=== PATIENT | male | born 1945 | race Caucasian/White ===

== ENCOUNTER 2018-01-15 11:21 | Inpatient (IN) | payer BC ==
[2018-01-15 11:48] LABS: ADD MAN DIFF? NO
[2018-01-15 11:53] LABS: BASOPHIL # 0.1 10^3/ul (0.0-0.1); BASOPHILS % 0.4 % (0.0-2.0); EOSINOPHILS # 0.1 10^3/ul (0.0-0.5); EOSINOPHILS % 0.6 % (0.0-7.0); HEMATOCRIT 38.1 % (42.0-52.0); HEMOGLOBIN 13.5 g/dl (14.0-18.0); LYMPHOCYTES # 0.9 10^3/ul (0.8-2.9); LYMPHOCYTES % 7.2 % (15.0-51.0); MEAN CORPUSCULAR HEMOGLOBIN 31.3 pg (29.0-33.0); MEAN CORPUSCULAR HGB CONC 35.4 g/dl (32.0-37.0); MEAN CORPUSCULAR VOLUME 88.4 fl (82.0-101.0); MEAN PLATELET VOLUME 8.6 fl (7.4-10.4); MONOCYTE # 0.7 10^3/ul (0.3-0.9); MONOCYTES % 5.5 % (0.0-11.0); NEUTROPHIL # 10.2 10^3/ul (1.6-7.5); NEUTROPHILS % 85.7 % (39.0-77.0); PLATELET COUNT 276 10^3/UL (140-415); RED BLOOD COUNT 4.31 10^6/ul (4.70-6.10); RED CELL DISTRIBUTION WIDTH 12.5 % (11.5-14.5)
[2018-01-15 11:53] LABS: WHITE BLOOD COUNT 11.9 10^3/ul (4.8-10.8)
[2018-01-15] MEDS: LACTATED RINGER'S 2,480 ML IV (12:16)
[2018-01-15] MEDS: SODIUM CHLORIDE 0.9% 1L BAG IV* (12:17)
[2018-01-15 12:18] LABS: INR 0.92; PROTIME 12.4 Sec (11.9-14.9)
[2018-01-15 12:19] LABS: ALANINE AMINOTRANSFERASE 63 IU/L (13-69); ALBUMIN/GLOBULIN RATIO 1.48; ALKALINE PHOSPHATASE 74 IU/L (42-121); ANION GAP 18 (8-16); ASPARTATE AMINO TRANSFERASE 34 IU/L (15-46); BILIRUBIN,INDIRECT 0.3 mg/dl (0-1.1); BILIRUBIN,TOTAL 0.3 mg/dl (0.2-1.3); BLOOD UREA NITROGEN 29 mg/dl (7-20); CALCIUM 9.7 mg/dl (8.4-10.2); CARBON DIOXIDE 23 mmol/L (21-31); CHLORIDE 101 mmol/L (97-110); CREATININE 1.29 mg/dl (0.61-1.24); GLUCOSE 181 mg/dl (70-220); LIPASE 134 U/L (23-300); PARTIAL THROMBOPLASTIN TIME 26.2 Sec (25.0-35.0); POTASSIUM 4.4 mmol/L (3.5-5.1); SODIUM 138 mmol/L (135-144); TOTAL PROTEIN 6.7 g/dl (6.1-8.1)
[2018-01-15 12:25] LABS: LACTIC ACID 2.8 mmol/L (0.5-2.0)
[2018-01-15 12:30] LABS: ADD UMIC YES; UR ASCORBIC ACID NEGATIVE (NEGATIVE); UR BACTERIA FEW /HPF (NONE SEEN); UR BILIRUBIN (Dip) NEGATIVE (NEGATIVE); UR BLOOD (Dip) 1+ mg/dL (NEGATIVE); UR CLARITY SLIGHTLY CLOUDY (CLEAR); UR COLOR YELLOW (YELLOW); UR GLUCOSE (Dip) NEGATIVE (NEGATIVE); UR KETONES (Dip) NEGATIVE (NEGATIVE); UR LEUKOCYTE ESTERASE (Dip) NEGATIVE Leu/ul (NEGATIVE); UR MUCUS FEW /HPF (NONE SEEN); UR NITRITE (Dip) NEGATIVE (NEGATIVE); UR RBC 4 /HPF (0-5); UR SPECIFIC GRAVITY (Dip) 1.021 (1.003-1.030); UR TOTAL PROTEIN (Dip) 2+ mg/dl (NEGATIVE); UR UROBILINOGEN (Dip) NEGATIVE (NEGATIVE); UR WBC 1 /HPF (0-5)
[2018-01-15 12:35] LABS: TROPONIN-I < 0.012 ng/ml (0.00-0.12)
[2018-01-15] MEDS: CEFEPIME 2GM/50 ML (PMX) 50 ML IVPB (13:03)
[2018-01-15] MEDS: VANCOMYCIN 1 GM (PMX) 250 ML IVPB (13:22)
[2018-01-15] MEDS ORDERED: ONDANSETRON 4 MG INJ IV ×2 (13:30→15:00)
[2018-01-15] MEDS ORDERED: ACETAMINOPHEN 325 MG TAB PO ×2 (13:30→15:00)
[2018-01-15 14:27] LABS: LACTIC ACID 2.4 mmol/L (0.5-2.0)
[2018-01-15] MEDS ORDERED: BISACODYL 10 MG SUPP PR (15:00)
[2018-01-15] MEDS ORDERED: MAGNESIUM HYDROXIDE 30ML CUP PO (15:00)
[2018-01-15] MEDS ORDERED: DOCUSATE SODIUM 100 MG CAP PO (15:00)
[2018-01-15 17:15] LABS: LACTIC ACID 1.7 mmol/L (0.5-2.0)
[2018-01-15] MEDS: morphine 4 MG/ML VIAL IV (19:48)
[2018-01-15] MEDS: FAMOTIDINE 20 MG INJ IV (22:36)
[2018-01-15] MEDS: SOD CHLORIDE 0.9% 1,000 ML IV (22:36)
[2018-01-15] MEDS: ATORVASTATIN 40 MG TAB PO (22:36)
[2018-01-15] MEDS: LISINOPRIL 20 MG TAB PO (22:37)
[2018-01-16] MEDS: SOD CHLORIDE 0.9% 1,000 ML IV ×3 (03:18→15:48)
[2018-01-16 07:27] LABS: ADD MAN DIFF? NO
[2018-01-16 07:37] LABS: BASOPHIL # 0.1 10^3/ul (0.0-0.1); BASOPHILS % 0.8 % (0.0-2.0); EOSINOPHILS # 0.1 10^3/ul (0.0-0.5); EOSINOPHILS % 1.7 % (0.0-7.0); HEMATOCRIT 33.5 % (42.0-52.0); HEMOGLOBIN 11.8 g/dl (14.0-18.0); LYMPHOCYTES # 1.3 10^3/ul (0.8-2.9); LYMPHOCYTES % 15.4 % (15.0-51.0); MEAN CORPUSCULAR HEMOGLOBIN 31.2 pg (29.0-33.0); MEAN CORPUSCULAR HGB CONC 35.2 g/dl (32.0-37.0); MEAN CORPUSCULAR VOLUME 88.6 fl (82.0-101.0); MEAN PLATELET VOLUME 8.8 fl (7.4-10.4); MONOCYTE # 0.8 10^3/ul (0.3-0.9); MONOCYTES % 9.3 % (0.0-11.0); NEUTROPHILS % 72.4 % (39.0-77.0); PLATELET COUNT 249 10^3/UL (140-415); RED BLOOD COUNT 3.78 10^6/ul (4.70-6.10); RED CELL DISTRIBUTION WIDTH 12.7 % (11.5-14.5)
[2018-01-16 07:37] LABS: WHITE BLOOD COUNT 8.3 10^3/ul (4.8-10.8)
[2018-01-16 07:58] LABS: LACTIC ACID 0.9 mmol/L (0.5-2.0)
[2018-01-16 07:59] LABS: ANION GAP 13 (8-16); BLOOD UREA NITROGEN 18 mg/dl (7-20); CALCIUM 9.4 mg/dl (8.4-10.2); CARBON DIOXIDE 29 mmol/L (21-31); CHLORIDE 107 mmol/L (97-110); GLUCOSE 76 mg/dl (70-220); MAGNESIUM 1.7 mg/dl (1.7-2.5); POTASSIUM 4.6 mmol/L (3.5-5.1); SODIUM 144 mmol/L (135-144)
[2018-01-16] MEDS: ASPIRIN 325 MG TAB PO (08:57)
[2018-01-16] MEDS: FAMOTIDINE 20 MG INJ IV ×2 (08:57→21:17)
[2018-01-16] MEDS: AMLODIPINE 10 MG TAB PO (09:00)
[2018-01-16] MEDS: SERTRALINE 50 MG TAB PO (09:00)
[2018-01-16] MEDS: MULTIVITAMINS THERAPEUTIC TAB PO (09:00)
[2018-01-16] MEDS: CEFEPIME 2GM/50 ML (PMX) 50 ML IVPB (13:31)
[2018-01-16] MEDS: CLOPIDOGREL 75 MG TAB PO (15:35)
[2018-01-16] MEDS ORDERED: VANCOMYCIN IV PER PHARMACY XX (19:30)
[2018-01-16] MEDS: ATORVASTATIN 40 MG TAB PO (21:17)
[2018-01-16] MEDS: NACL 0.9% 3 ML SYG IV (21:17)
[2018-01-16] MEDS: LISINOPRIL 20 MG TAB PO (21:17)
[2018-01-17] MEDS: VANCOMYCIN 750 MG in DEXTROSE 5% 150 ML IVPB ×2 (00:44→12:11)
[2018-01-17] MEDS: SOD CHLORIDE 0.9% 1,000 ML IV ×3 (04:34→20:22)
[2018-01-17 05:36] LABS: ADD MAN DIFF? NO
[2018-01-17 05:41] LABS: BASOPHIL # 0.1 10^3/ul (0.0-0.1); BASOPHILS % 0.7 % (0.0-2.0); EOSINOPHILS # 0.1 10^3/ul (0.0-0.5); EOSINOPHILS % 1.5 % (0.0-7.0); HEMATOCRIT 36.3 % (42.0-52.0); LYMPHOCYTES # 1.3 10^3/ul (0.8-2.9); LYMPHOCYTES % 13.3 % (15.0-51.0); MEAN CORPUSCULAR HEMOGLOBIN 31.5 pg (29.0-33.0); MEAN CORPUSCULAR HGB CONC 35.8 g/dl (32.0-37.0); MEAN CORPUSCULAR VOLUME 87.9 fl (82.0-101.0); MEAN PLATELET VOLUME 8.5 fl (7.4-10.4); MONOCYTE # 0.8 10^3/ul (0.3-0.9); MONOCYTES % 8.1 % (0.0-11.0); NEUTROPHIL # 7.2 10^3/ul (1.6-7.5); PLATELET COUNT 270 10^3/UL (140-415); RED BLOOD COUNT 4.13 10^6/ul (4.70-6.10); RED CELL DISTRIBUTION WIDTH 12.2 % (11.5-14.5)
[2018-01-17 05:41] LABS: WHITE BLOOD COUNT 9.4 10^3/ul (4.8-10.8)
[2018-01-17 05:57] LABS: PHOSPHORUS 2.9 mg/dl (2.5-4.9)
[2018-01-17 05:57] LABS: MAGNESIUM 1.5 mg/dl (1.7-2.5)
[2018-01-17 05:59] LABS: ANION GAP 15 (8-16); BLOOD UREA NITROGEN 13 mg/dl (7-20); CALCIUM 10.2 mg/dl (8.4-10.2); CARBON DIOXIDE 28 mmol/L (21-31); CHLORIDE 106 mmol/L (97-110); CREATININE 1.18 mg/dl (0.61-1.24); GLUCOSE 86 mg/dl (70-220); POTASSIUM 5.3 mmol/L (3.5-5.1); SODIUM 144 mmol/L (135-144)
[2018-01-17] MEDS: AMLODIPINE 10 MG TAB PO (09:04)
[2018-01-17] MEDS: ASPIRIN 325 MG TAB PO (09:04)
[2018-01-17] MEDS: CLOPIDOGREL 75 MG TAB PO (09:04)
[2018-01-17] MEDS: MULTIVITAMINS THERAPEUTIC TAB PO (09:04)
[2018-01-17] MEDS: FAMOTIDINE 20 MG INJ IV ×2 (09:04→20:54)
[2018-01-17] MEDS: SERTRALINE 50 MG TAB PO (09:05)
[2018-01-17] MEDS: CEFEPIME 2GM/50 ML (PMX) 50 ML IVPB (14:17)
[2018-01-17] MEDS: LISINOPRIL 20 MG TAB PO (20:55)
[2018-01-17] MEDS: ATORVASTATIN 40 MG TAB PO (20:55)
[2018-01-18] MEDS: VANCOMYCIN 750 MG in DEXTROSE 5% 150 ML IVPB (01:21)
[2018-01-18] MEDS: SOD CHLORIDE 0.9% 1,000 ML IV ×3 (05:18→17:43)
[2018-01-18] MEDS: MULTIVITAMINS THERAPEUTIC TAB PO (09:33)
[2018-01-18] MEDS: ASPIRIN 325 MG TAB PO (09:33)
[2018-01-18] MEDS: CLOPIDOGREL 75 MG TAB PO (09:33)
[2018-01-18] MEDS: FAMOTIDINE 20 MG INJ IV ×2 (09:34→21:08)
[2018-01-18] MEDS: SERTRALINE 50 MG TAB PO (09:34)
[2018-01-18] MEDS: AMLODIPINE 10 MG TAB PO (09:34)
[2018-01-18] MEDS: CEFEPIME 2GM/50 ML (PMX) 50 ML IVPB (12:45)
[2018-01-18] MEDS: CLINDAMYCIN 600 MG/D5W (PMX) 50 ML IVPB ×2 (13:25→21:11)
[2018-01-18 14:36] LABS: ANION GAP 15 (8-16); BLOOD UREA NITROGEN 13 mg/dl (7-20); CALCIUM 9.3 mg/dl (8.4-10.2); CARBON DIOXIDE 24 mmol/L (21-31); CHLORIDE 105 mmol/L (97-110); CREATININE 1.06 mg/dl (0.61-1.24); GLUCOSE 88 mg/dl (70-220); SODIUM 140 mmol/L (135-144)
[2018-01-18 14:37] LABS: LACTIC ACID 0.9 mmol/L (0.5-2.0)
[2018-01-18 14:39] LABS: AMMONIA < 9 umol/l (9-30)
[2018-01-18] MEDS: LISINOPRIL 20 MG TAB PO (21:07)
[2018-01-18] MEDS: ATORVASTATIN 40 MG TAB PO (21:08)
[2018-01-19] MEDS: SOD CHLORIDE 0.9% 1,000 ML IV ×3 (04:18→20:04)
[2018-01-19] MEDS: CLINDAMYCIN 600 MG/D5W (PMX) 50 ML IVPB ×3 (05:43→22:38)
[2018-01-19 05:54] LABS: ADD MAN DIFF? NO
[2018-01-19 05:59] LABS: WHITE BLOOD COUNT 7.3 10^3/ul (4.8-10.8)
[2018-01-19 05:59] LABS: BASOPHIL # 0.1 10^3/ul (0.0-0.1); BASOPHILS % 0.7 % (0.0-2.0); EOSINOPHILS # 0.2 10^3/ul (0.0-0.5); HEMATOCRIT 31.2 % (42.0-52.0); HEMOGLOBIN 11.3 g/dl (14.0-18.0); LYMPHOCYTES # 1.1 10^3/ul (0.8-2.9); LYMPHOCYTES % 14.8 % (15.0-51.0); MEAN CORPUSCULAR HEMOGLOBIN 31.3 pg (29.0-33.0); MEAN CORPUSCULAR HGB CONC 36.2 g/dl (32.0-37.0); MEAN CORPUSCULAR VOLUME 86.4 fl (82.0-101.0); MEAN PLATELET VOLUME 8.9 fl (7.4-10.4); MONOCYTE # 0.6 10^3/ul (0.3-0.9); MONOCYTES % 8.1 % (0.0-11.0); NEUTROPHIL # 5.4 10^3/ul (1.6-7.5); NEUTROPHILS % 74.1 % (39.0-77.0); PLATELET COUNT 255 10^3/UL (140-415); RED BLOOD COUNT 3.61 10^6/ul (4.70-6.10); RED CELL DISTRIBUTION WIDTH 12.1 % (11.5-14.5)
[2018-01-19 06:29] LABS: MAGNESIUM 1.4 mg/dl (1.7-2.5)
[2018-01-19 06:36] LABS: ALANINE AMINOTRANSFERASE 33 IU/L (13-69); ALBUMIN 3.6 g/dl (3.3-4.9); ALBUMIN/GLOBULIN RATIO 1.38; ALKALINE PHOSPHATASE 61 IU/L (42-121); ANION GAP 16 (8-16); ASPARTATE AMINO TRANSFERASE 21 IU/L (15-46); BILIRUBIN,INDIRECT 0.5 mg/dl (0-1.1); BILIRUBIN,TOTAL 0.5 mg/dl (0.2-1.3); BLOOD UREA NITROGEN 13 mg/dl (7-20); CALCIUM 9.1 mg/dl (8.4-10.2); CARBON DIOXIDE 25 mmol/L (21-31); CHLORIDE 105 mmol/L (97-110); CREATININE 1.09 mg/dl (0.61-1.24); GLUCOSE 68 mg/dl (70-220); POTASSIUM 3.4 mmol/L (3.5-5.1); SODIUM 143 mmol/L (135-144); TOTAL PROTEIN 6.2 g/dl (6.1-8.1)
[2018-01-19] MEDS: ASPIRIN 325 MG TAB PO (09:00)
[2018-01-19] MEDS: MULTIVITAMINS THERAPEUTIC TAB PO (09:00)
[2018-01-19] MEDS: CLOPIDOGREL 75 MG TAB PO (09:00)
[2018-01-19] MEDS: AMLODIPINE 10 MG TAB PO (09:00)
[2018-01-19] MEDS: SERTRALINE 50 MG TAB PO (09:00)
[2018-01-19] MEDS: FAMOTIDINE 20 MG INJ IV ×2 (09:06→21:28)
[2018-01-19] MEDS: ASPIRIN 300 MG SUPP PR (11:15)
[2018-01-19] MEDS: CEFEPIME 2GM/50 ML (PMX) 50 ML IVPB (14:25)
[2018-01-19] MEDS: MAGNESIUM SULFATE 4 GM/100 ML 100 ML IVPB (17:55)
[2018-01-19] MEDS: ATORVASTATIN 40 MG TAB PO (21:00)
[2018-01-19] MEDS: LISINOPRIL 20 MG TAB PO (21:00)
[2018-01-19] MEDS: POTASSIUM CHLORIDE 100 ML IVPB ×2 (21:29→23:49)
[2018-01-20] MEDS: CLINDAMYCIN 600 MG/D5W (PMX) 50 ML IVPB ×3 (05:53→22:23)
[2018-01-20 06:14] LABS: ADD MAN DIFF? NO
[2018-01-20 06:24] LABS: ABNORMAL IP MESSAGE 1; BASOPHIL # 0.1 10^3/ul (0.0-0.1); BASOPHILS % 0.6 % (0.0-2.0); EOSINOPHILS # 0.5 10^3/ul (0.0-0.5); EOSINOPHILS % 6.2 % (0.0-7.0); HEMATOCRIT 34.1 % (42.0-52.0); HEMOGLOBIN 12.3 g/dl (14.0-18.0); LYMPHOCYTES # 0.9 10^3/ul (0.8-2.9); LYMPHOCYTES % 10.6 % (15.0-51.0); MEAN CORPUSCULAR HEMOGLOBIN 31.2 pg (29.0-33.0); MEAN CORPUSCULAR HGB CONC 36.1 g/dl (32.0-37.0); MEAN CORPUSCULAR VOLUME 86.5 fl (82.0-101.0); MEAN PLATELET VOLUME 8.4 fl (7.4-10.4); MONOCYTE # 0.6 10^3/ul (0.3-0.9); MONOCYTES % 6.9 % (0.0-11.0); NEUTROPHIL # 6.2 10^3/ul (1.6-7.5); NEUTROPHILS % 75.3 % (39.0-77.0); PLATELET COUNT 276 10^3/UL (140-415); POSITIVE DIFF @See below; RED BLOOD COUNT 3.94 10^6/ul (4.70-6.10); RED CELL DISTRIBUTION WIDTH 12.5 % (11.5-14.5)
[2018-01-20 06:24] LABS: WHITE BLOOD COUNT 8.2 10^3/ul (4.8-10.8)
[2018-01-20 06:41] LABS: MAGNESIUM 2.3 mg/dl (1.7-2.5)
[2018-01-20 07:04] LABS: ALANINE AMINOTRANSFERASE 35 IU/L (13-69); ALBUMIN 3.9 g/dl (3.3-4.9); ALBUMIN/GLOBULIN RATIO 1.08; ALKALINE PHOSPHATASE 78 IU/L (42-121); ANION GAP 18 (8-16); ASPARTATE AMINO TRANSFERASE 27 IU/L (15-46); BILIRUBIN,INDIRECT 0.6 mg/dl (0-1.1); BILIRUBIN,TOTAL 0.6 mg/dl (0.2-1.3); BLOOD UREA NITROGEN 15 mg/dl (7-20); CALCIUM 9.1 mg/dl (8.4-10.2); CARBON DIOXIDE 24 mmol/L (21-31); CHLORIDE 104 mmol/L (97-110); CREATININE 1.14 mg/dl (0.61-1.24); GLUCOSE 59 mg/dl (70-220); POTASSIUM 4.3 mmol/L (3.5-5.1); SODIUM 142 mmol/L (135-144); TOTAL PROTEIN 7.5 g/dl (6.1-8.1)
[2018-01-20] MEDS: AMLODIPINE 10 MG TAB PO (08:23)
[2018-01-20] MEDS: CLOPIDOGREL 75 MG TAB PO (08:23)
[2018-01-20] MEDS: SERTRALINE 50 MG TAB PO (08:24)
[2018-01-20] MEDS: MULTIVITAMINS THERAPEUTIC TAB PO (08:24)
[2018-01-20] MEDS: ASPIRIN 325 MG TAB PO (08:39)
[2018-01-20] MEDS: FAMOTIDINE 20 MG INJ IV ×2 (08:39→22:26)
[2018-01-20] MEDS: ASPIRIN 300 MG SUPP PR (09:57)
[2018-01-20 10:40] LABS: ANISOCYTOSIS 2+ (0-0); BAND NEUTROPHILS #M 0.4 10^3/ul (0.0-0.6); BAND NEUTROPHILS % (M) 5 % (0-4); GIANT THROMBO% (M) 1 % (0-0); LYMPHOCYTES #M 0.4 10^3/ul (0.8-2.9); LYMPHOCYTES % (M) 5 % (15-51); MICROCYTOSIS 2+ (0-0); MONOCYTE #M 0.2 10^3/ul (0.3-0.9); MONOCYTES % (M) 3 % (0-11); PLATELET ESTIMATE NORMAL; POIKILOCYTOSIS 2+ (0-0); POLYCHROMASIA 3+ (0-0); SEG NEUT #M 7.2 10^3/ul (1.6-7.5); SEGMENTED NEUTROPHILS (M) % 87 % (39-77); SMUDGE%M 1 % (0-0)
[2018-01-20] MEDS: BARIUM SULFATE 135 ML (E-Z HD) PO (11:32)
[2018-01-20] MEDS: CEFEPIME 2GM/50 ML (PMX) 50 ML IVPB (13:20)
[2018-01-20] MEDS: SOD CHLORIDE 0.9% 1,000 ML IV (15:26)
[2018-01-20] MEDS ORDERED: IOHEXOL 100 ML (20:34)
[2018-01-20] MEDS ORDERED: SOD CHLORIDE 0.9% 100 ML (20:34)
[2018-01-20] MEDS: LISINOPRIL 20 MG TAB PO (22:26)
[2018-01-20] MEDS: ATORVASTATIN 40 MG TAB PO (22:26)
[2018-01-20] MEDS: HEPARIN 5,000 UNIT/0.5 ML VIAL SC (22:27)
[2018-01-21] MEDS: CLINDAMYCIN 600 MG/D5W (PMX) 50 ML IVPB ×5 (07:02→23:14)
[2018-01-21] MEDS: HEPARIN 5,000 UNIT/0.5 ML VIAL SC ×3 (07:04→23:14)
[2018-01-21] MEDS: SOD CHLORIDE 0.9% 1,000 ML IV ×2 (08:18→11:03)
[2018-01-21] MEDS: hydrALAzine 20 MG INJ IV (08:23)
[2018-01-21] MEDS: SERTRALINE 50 MG TAB PO (09:00)
[2018-01-21] MEDS: ASPIRIN 325 MG TAB PO (09:00)
[2018-01-21] MEDS: MULTIVITAMINS THERAPEUTIC TAB PO (09:00)
[2018-01-21] MEDS: CLOPIDOGREL 75 MG TAB PO (09:00)
[2018-01-21] MEDS: AMLODIPINE 10 MG TAB PO (09:00)
[2018-01-21 09:49] LABS: ADD MAN DIFF? NO
[2018-01-21 09:58] LABS: WHITE BLOOD COUNT 7.4 10^3/ul (4.8-10.8)
[2018-01-21 09:58] LABS: BASOPHIL # 0.1 10^3/ul (0.0-0.1); BASOPHILS % 0.7 % (0.0-2.0); EOSINOPHILS # 0.2 10^3/ul (0.0-0.5); HEMATOCRIT 33.9 % (42.0-52.0); HEMOGLOBIN 12.2 g/dl (14.0-18.0); LYMPHOCYTES # 1.2 10^3/ul (0.8-2.9); MEAN CORPUSCULAR HEMOGLOBIN 31.3 pg (29.0-33.0); MEAN CORPUSCULAR VOLUME 86.9 fl (82.0-101.0); MEAN PLATELET VOLUME 9.1 fl (7.4-10.4); MONOCYTE # 0.7 10^3/ul (0.3-0.9); MONOCYTES % 9.3 % (0.0-11.0); NEUTROPHIL # 5.3 10^3/ul (1.6-7.5); NEUTROPHILS % 71.6 % (39.0-77.0); PLATELET COUNT 243 10^3/UL (140-415); POSITIVE DIFF @See below; RED CELL DISTRIBUTION WIDTH 12.6 % (11.5-14.5)
[2018-01-21] MEDS: FAMOTIDINE 20 MG INJ IV ×2 (10:14→20:13)
[2018-01-21] MEDS: DEXTROSE 5%-0.45% NACL 1,000 ML IV (15:19)
[2018-01-21] MEDS: CEFAZOLIN 1 GM/50 ML (PMX) 50 ML IVPB (18:23)
[2018-01-21] MEDS: ATORVASTATIN 40 MG TAB PO (20:17)
[2018-01-21] MEDS: LISINOPRIL 20 MG TAB PO (20:17)
[2018-01-22] MEDS: DEXTROSE 5%-0.45% NACL 1,000 ML IV ×4 (01:00→22:02)
[2018-01-22] MEDS: HEPARIN 5,000 UNIT/0.5 ML VIAL SC ×3 (05:04→22:05)
[2018-01-22] MEDS: CLINDAMYCIN 600 MG/D5W (PMX) 50 ML IVPB ×3 (05:05→22:01)
[2018-01-22] MEDS: ASPIRIN 325 MG TAB PO (09:00)
[2018-01-22] MEDS: AMLODIPINE 10 MG TAB PO (09:00)
[2018-01-22] MEDS: MULTIVITAMINS THERAPEUTIC TAB PO (09:00)
[2018-01-22] MEDS: SERTRALINE 50 MG TAB PO (09:00)
[2018-01-22] MEDS: CLOPIDOGREL 75 MG TAB PO (09:00)
[2018-01-22] MEDS: FAMOTIDINE 20 MG INJ IV ×2 (09:12→20:32)
[2018-01-22 10:30] LABS: ANION GAP 17 (8-16); BLOOD UREA NITROGEN 11 mg/dl (7-20); CALCIUM 9.3 mg/dl (8.4-10.2); CARBON DIOXIDE 27 mmol/L (21-31); CHLORIDE 99 mmol/L (97-110); CREATININE 1.12 mg/dl (0.61-1.24); GLUCOSE 155 mg/dl (70-220); POTASSIUM 3.4 mmol/L (3.5-5.1); SODIUM 140 mmol/L (135-144)
[2018-01-22] MEDS: POTASSIUM CHLORIDE 50 ML IVPB ×3 (11:47→14:03)
[2018-01-22] MEDS ORDERED: EPHEDrine SULFATE 50 MG/5 ML SYG IV (18:00)
[2018-01-22] MEDS ORDERED: MIDAZOLAM 1 MG/ML 2 ML INJ IV (18:00)
[2018-01-22] MEDS ORDERED: MEPERIDINE 25 MG INJ IV (18:00)
[2018-01-22] MEDS ORDERED: DIPHENHYDRAMINE 50 MG INJ IV (18:00)
[2018-01-22] MEDS ORDERED: hydrALAzine 20 MG INJ IV (18:00)
[2018-01-22] MEDS ORDERED: OXYCODONE/ACETAMINOPHEN (5/325) TAB PO ×2 (18:00)
[2018-01-22] MEDS ORDERED: ONDANSETRON 4 MG INJ IV (18:00)
[2018-01-22] MEDS ORDERED: FENTAnyl 50 MCG/ML VIAL IV ×3 (18:00)
[2018-01-22] MEDS ORDERED: LABETALOL HCL 20MG INJ IV (18:00)
[2018-01-22] MEDS ORDERED: METOCLOPRAMIDE 10 MG INJ IV (18:00)
[2018-01-22] MEDS: CEFAZOLIN 2 GM/50 ML (PMX) 50 ML IVPB (18:52)
[2018-01-22] MEDS: PROPOFOL 20 ML (18:52)
[2018-01-22] MEDS: hydrALAzine 20 MG INJ IV (18:59)
[2018-01-22] MEDS: morphine 2 MG INJ IV (19:28)
[2018-01-22] MEDS: LISINOPRIL 20 MG TAB PO (20:48)
[2018-01-22] MEDS: ATORVASTATIN 40 MG TAB PO (20:48)
[2018-01-23] MEDS: CLINDAMYCIN 600 MG/D5W (PMX) 50 ML IVPB (06:05)
[2018-01-23] MEDS: HEPARIN 5,000 UNIT/0.5 ML VIAL SC ×2 (06:06→13:50)
[2018-01-23] MEDS: DEXTROSE 5%-0.45% NACL 1,000 ML IV ×2 (07:00→11:29)
[2018-01-23] MEDS: FAMOTIDINE 20 MG INJ IV (08:44)
[2018-01-23] MEDS: ASPIRIN 325 MG TAB PO (08:44)
[2018-01-23] MEDS: SERTRALINE 50 MG TAB PO (08:44)
[2018-01-23] MEDS: AMLODIPINE 10 MG TAB PO (08:44)
[2018-01-23] MEDS: CLOPIDOGREL 75 MG TAB PO (08:44)
[2018-01-23] MEDS: MULTIVITAMINS THERAPEUTIC TAB PO (08:44)
== END 2018-01-23 18:50 | DRG 64 ==
LOC: MS2 01-18 07:15 → E/R 11:21 → MS2 13:21
PROC: 0DH63UZ Insertion of Feeding Device into Stomach, Percutaneous Approach (ICD-10-PCS; principal; 2018-01-22 15:50)
DX: I63.231 Cerebral infarction due to unspecified occlusion or stenosis of right carotid arteries (principal); J69.0 Pneumonitis due to inhalation of food and vomit; J96.01 Acute respiratory failure with hypoxia; G93.41 Metabolic encephalopathy; N17.9 Acute kidney failure, unspecified; E87.2 Acidosis; R13.10 Dysphagia, unspecified; N39.0 Urinary tract infection, site not specified; E86.0 Dehydration; F01.50 Vascular dementia, unspecified severity, without behavioral disturbance, psychotic disturbance, mood disturbance, and anxiety; E78.5 Hyperlipidemia, unspecified; F32.9 Major depressive disorder, single episode, unspecified; R47.01 Aphasia; I10 Essential (primary) hypertension; I69.354 Hemiplegia and hemiparesis following cerebral infarction affecting left non-dominant side; Z72.0 Tobacco use
CPT/HCPCS: 36415; 70450; 70498; 70551; 71045; 74230; 80048; 80053; 81001; 82140; 83605; 83690; 83735; 84100; 84484; 85025; 85610; 85730; 87040; 87045; 87081; 87086; 92526; 92610; 92611; 93005; 93880; 96374; 96375; 97110; 97163; 97530; 99285-25